=== PATIENT | male | born 1970 | race Caucasian/White ===

== ENCOUNTER 2016-12-25 14:50 | Emergency (ER) | payer BC ==
[2016-12-25] MEDS ORDERED: Alum Hydrox/Mag Hydrox/Simeth 30 ML, Lidocaine 2% 15 ML PO ONE ×2 (15:54)
[2016-12-25] MEDS: Lactated Ringers 1,000 ML IV SCH ×3 (16:03→18:08)
[2016-12-25 16:16] LABS: CHLORIDE,CL 100 mEq/L (98-106); SODIUM,NA 139 mEq/L (136-145)
[2016-12-25] MEDS ORDERED: Morphine 4 MG/ML Syringe IVPUSH PRN (16:39)
--- NOTE | 2016-12-25 16:44 | EDM.PDOC ---
ED HPI GENERAL MEDICAL PROBLEM - General Chief Complaint: General Stated Complaint: "burning stomach," intermittent vomting Time Seen by Provider: 12/25/16 16:22 Source of Information: Reports: Patient History Limitations: Reports: No limitations - History of Present Illness INITIAL COMMENTS - FREE TEXT/NARRATIVE: Shen is a 46 yo male who presents to the ER with complaints of stomach pain. States Friday night he woke up in the middle of the night with the urge to vomit. Admits he was able to go back to sleep afterwards and felt fine. States he thought it was from his supper which he had fajitas. Friday he felt well and worked without complication. States he didn't eat a lot while working and was fine until 12:30-1 in the morning when he had the urge to vomit again. States he started to get an uncomfortable pressure in the abdomen which would come and go. States he has been having bowel movement with last night having a little bit of diarrhea X 4 yesterday. States he currently doesn't have his appendix or gallbladder. He states d/t not feeling well he hasn't been able to take any of his blood pressure medications since yesterday morning. Onset Date: 12/23/16 Onset Time: 01:00 Duration: Getting worse Location: Reports: abdomen Associated Symptoms: Reports: loss of appetite, nausea/vomiting. Denies: confusion, chest pain, cough, cough w sputum, diaphoresis, fever/chills, headaches, shortness of breath, weakness - Related Data Allergies Allergy/AdvReac Type Severity Reaction Status Date / Time No Known Allergies Allergy Verified 12/25/16 14:57 Home Meds: Home Meds Aspirin [Halfprin] 81 mg PO DAILY 12/25/16 [History] Lisinopril/Hydrochlorothiazide [Lisinopril-Hctz 20-25 mg Tab] 1 tab PO DAILY [History] Phentermine HCl 15 mg PO DAILY 12/25/16 [History] Topiramate 50 mg PO BID 12/25/16 [History] Past Medical History Cardiovascular History: Reports: Hypertension - Past Surgical History HEENT Surgical History: Reports: Adenoidectomy, Tonsillectomy GI Surgical History: Reports: Appendectomy, Cholecystectomy, Hernia, abdominal Social & Family History - Tobacco Use Smoking Status *Q: Never Smoker ED ROS GENERAL - Review of Systems Review Of Systems: See Below Constitutional: Reports: decreased appetite. Denies: fever, chills, weakness, fatigue HEENT: Reports: No symptoms Respiratory: Reports: No Symptoms Cardiovascular: Reports: No symptoms GI/Abdominal: Reports: Abdominal pain, Diarrhea, Decreased appetite, Nausea, Vomiting. Denies: Black stool, Bloody stool, Constipation, Difficulty swallowing, Distension, Mucous in stool : Reports: no symptoms Musculoskeletal: Reports: no symptoms Skin: Reports: no symptoms ED EXAM, GENERAL - Physical Exam Exam: See Below Exam Limited By: No limitations General Appearance: alert, no apparent distress Ears: normal external exam, normal canal, hearing grossly normal, normal TMs Nose: normal inspection, no blood Throat/Mouth: Normal inspection, Normal teeth, Normal oropharynx, No airway compromise Head: atraumatic, normocephalic Neck: normal inspection, supple, non-tender Respiratory/Chest: no respiratory distress, lungs clear, normal breath sounds, no accessory muscle use Cardiovascular: normal peripheral pulses, no edema, no murmur, tachycardia GI/Abdominal: normal bowel sounds, soft, no mass, tender (midepigastrc). No: hepatomegaly, splenomegaly Extremities: normal inspection, normal range of motion Neurological: alert, oriented, no motor/sensory deficits Psychiatric: normal affect, normal mood Skin Exam: Warm, Dry, Intact, Normal color Course - Vital Signs Last Recorded V/S: Last Vital Signs Temp 98.1 F 12/25/16 14:52 Pulse 112 H 12/25/16 16:55 Resp 18 12/25/16 14:52 BP 163/108 H 12/25/16 16:55 Pulse Ox 99 12/25/16 14:52 - Orders/Labs/Meds Orders: Active Orders 24 hr Category Date Time Status Abdomen Pelvis w Cont [CT] Stat Exams 12/25/16 16:36 Taken H PYLORI STOOL ANTIGEN [MREF] Stat Lab 12/25/16 20:29 Uncollected Lactated Ringers [Ringers, Lactated] 1,000 ml Med 12/25/16 16:00 Active IV ASDIRECTED Metoclopramide [Reglan] Med 12/25/16 20:31 Ordered 10 mg PO BID PRN Morphine Med 12/25/16 16:39 Active 4 mg IVPUSH Q2H PRN Pantoprazole [Protonix IV] Med 12/25/16 16:45 Active 40 mg IVPUSH Q24H Medication Orders Lactated Ringer's (Ringers, Lactated) 1,000 mls @ 999 mls/hr IV ASDIRECTED [facility] Last Admin: 12/25/16 18:08 Dose: 999 mls/hr Infusion: 12/25/16 18:08 Dose: 999 mls/hr Admin: 12/25/16 17:07 Dose: 999 mls/hr Infusion: 12/25/16 17:04 Dose: 999 mls/hr Admin: 12/25/16 16:03 Dose: 999 mls/hr Metoclopramide HCl (Reglan) 10 mg PO BID PRN PRN Reason: Nausea Stop: 12/27/16 08:01 Last Admin: 12/25/16 20:40 Dose: 40 mg Morphine Sulfate (Morphine) 4 mg IVPUSH Q2H PRN PRN Reason: Abdominal Pain Last Admin: 12/25/16 16:52 Dose: 4 mg Pantoprazole Sodium (Protonix Iv) 40 mg IVPUSH Q24H [facility] Last Admin: 12/25/16 16:46 Dose: 40 mg Labs: Laboratory Tests 12/25/16 12/25/16 12/25/16 Range/Units 15:55 15:55 16:36 WBC 16.0 H (5.0-10.0) 10^3/uL RBC 5.60 (4.50-6.00) 10^6/uL Hgb 16.4 (14.0-18.0) g/dL Hct 48.0 (40.0-54.0) % MCV 85.7 (82.0-94.0) fL MCH 29.3 (27.0-32.0) pg MCHC 34.2 (33.0-38.0) g/dL RDW Coeff of [place] 13.9 (11.0-15.0) % Plt Count 328 (150-400) 10^3/uL Add Manual Diff Yes Neutrophils % (Manual) 86 H (35-85) % Band Neutrophils % 9 H (0-5) % Lymphocytes % (Manual) 4 L (21-55) % Monocytes % (Manual) 1 L (2-12) % Absolute Neutrophils 15.20 H (1.80-7.00) 10^3/uL Lymphocytes # (Manual) 0.64 L (1.00-4.80) 10^3/uL Monocytes # (Manual) 0.16 (0.00-0.80) 10^3/uL Sodium 139 (136-145) mEq/L Potassium 3.9 (3.5-5.0) mEq/L Chloride 100 (98-106) mEq/L Carbon Dioxide 28 (21-32) mmol/L BUN 23 H (7-18) mg/dL Creatinine 1.1 (0.7-1.3) mg/dL Est Cr Clr Drug Dosing 87.47 mL/min Estimated GFR (MDRD) > 60 (>=60) mL/min Glucose 212 H (75-99) mg/dL Calcium 9.6 (8.4-10.1) mg/dL Total Bilirubin 0.8 (0.0-1.0) mg/dL AST 16 (15-37) U/L ALT 52 (12-78) U/L Alkaline Phosphatase 94 (46-116) U/L Creatine Kinase (35-232) U/L Troponin I (0.00-0.06) ng/mL C-Reactive Protein 2.1 H (0.2-0.8) mg/dL Total Protein 7.6 (6.4-8.2) g/dL Albumin 3.5 (3.4-5.0) g/dL Amylase 53 (25-115) U/L // Range/Units 16:49 WBC (5.0-10.0) 10^3/uL RBC (4.50-6.00) 10^6/uL Hgb (14.0-18.0) g/dL Hct (40.0-54.0) % MCV (82.0-94.0) fL MCH (27.0-32.0) pg MCHC (33.0-38.0) g/dL RDW Coeff of [place] (11.0-15.0) % Plt Count (150-400) 10^3/uL Add Manual Diff Neutrophils % (Manual) (35-85) % Band Neutrophils % (0-5) % Lymphocytes % (Manual) (21-55) % Monocytes % (Manual) (2-12) % Absolute Neutrophils (1.80-7.00) 10^3/uL Lymphocytes # (Manual) (1.00-4.80) 10^3/uL Monocytes # (Manual) (0.00-0.80) 10^3/uL Sodium (136-145) mEq/L Potassium (3.5-5.0) mEq/L Chloride (98-106) mEq/L Carbon Dioxide (21-32) mmol/L BUN (7-18) mg/dL Creatinine (0.7-1.3) mg/dL Est Cr Clr Drug Dosing mL/min Estimated GFR (MDRD) (>=60) mL/min Glucose (75-99) mg/dL Calcium (8.4-10.1) mg/dL Total Bilirubin (0.0-1.0) mg/dL AST (15-37) U/L ALT (12-78) U/L Alkaline Phosphatase (46-116) U/L Creatine Kinase 46 (35-232) U/L Troponin I < 0.017 (0.00-0.06) ng/mL C-Reactive Protein (0.2-0.8) mg/dL Total Protein (6.4-8.2) g/dL Albumin (3.4-5.0) g/dL Amylase (25-115) U/L Meds: Medications Generic Name Dose Route Start Last Admin Trade Name Freq PRN Reason Stop Dose Admin Lactated Ringer's 1,000 mls @ 999 mls/hr 12/25/16 16:00 12/25/16 18:08 Ringers, Lactated IV 999 mls/hr ASDIRECTED NOAH Administration Metoclopramide HCl 10 mg 12/25/16 20:31 12/25/16 20:40 Reglan PO 12/27/16 08:01 40 mg BID PRN Administration Nausea Morphine Sulfate 4 mg 12/25/16 16:39 12/25/16 16:52 Morphine IVPUSH 4 mg Q2H PRN Administration Abdominal Pain Pantoprazole Sodium 40 mg 12/25/16 16:45 12/25/16 16:46 Protonix Iv IVPUSH 40 mg Q24H NOAH Administration Discontinued Medications Generic Name Dose Route Start Last Admin Trade Name Freq PRN Reason Stop Dose Admin Al Hydroxide/Mg Hydroxide 30 0 ml 12/25/16 15:54 12/25/16 16:01 ml/ Lidocaine HCl 15 ml PO 03/22/17 15:55 45 ml ONETIME ONE Administration - Re-Assessments/Exams Free Text/Narrative Re-Assessment/Exam: Shen has not had any episodes of emesis since being in the ER. He has been doing well and currently has not had any discomfort. CT report read by Dr. German did not see any complete bowel obstructions. Stating there was two prominent loops without any sign of obstruction. Stomach was full of contrast and questioned whether this could be secondary to gastroparesis. No sign of outlet obstructions was seen. Duodenum was decompressed. Departure - Departure Time of Disposition: 20:47 Disposition: Home, Self-Care 01 Condition: good Clinical Impression: Abdominal discomfort, epigastric Nausea & vomiting Qualifiers: Vomiting type: unspecified Vomiting Intractability: unspecified Qualified Code( s): R11.2 - Nausea with vomiting, unspecified Forms: ED Department Discharge Additional Instructions: 1) Reglan 10mg twice a day as needed for nausea/vomiting/gastroparesis. 2) Pantaprozole 40mg daily. 3) Recommend obtaining stool sample for H.Pylori. 4) Discussed into detail if symptoms return or any concerns at all, recommend follow up. 5) Advise taking blood pressure medication as soon as you get home. - Problem List & Annotations (1) Abdominal discomfort, epigastric SNOMED Code(s): 480614766 Code(s): R10.13 - EPIGASTRIC PAIN Status: Acute Current Visit: Yes (2) Nausea & vomiting SNOMED Code(s): 47388792 Code(s): R11.2 - NAUSEA WITH VOMITING, UNSPECIFIED Status: Acute Current Visit: Yes Qualifiers: Vomiting type: unspecified Vomiting Intractability: unspecified Qualified Code(s): R11.2 - Nausea with vomiting, unspecified - Problem List Review Problem List Initiated/Reviewed/Updated: Yes - My Orders Last 24 Hours: My Active Orders 12/25/16 16:00 Lactated Ringers [Ringers, Lactated] 1,000 ml IV ASDIRECTED 12/25/16 16:36 Abdomen Pelvis w Cont [CT] Stat 12/25/16 16:39 Morphine 4 mg IVPUSH Q2H PRN 12/25/16 16:45 Pantoprazole [Protonix IV] 40 mg IVPUSH Q24H 12/25/16 20:29 H PYLORI STOOL ANTIGEN [MREF] Stat 12/25/16 20:31 Metoclopramide [Reglan] 10 mg PO BID PRN - Assessment/Plan Last 24 Hours: My Active Orders 12/25/16 16:00 Lactated Ringers [Ringers, Lactated] 1,000 ml IV ASDIRECTED 12/25/16 16:36 Abdomen Pelvis w Cont [CT] Stat 12/25/16 16:39 Morphine 4 mg IVPUSH Q2H PRN 12/25/16 16:45 Pantoprazole [Protonix IV] 40 mg IVPUSH Q24H 12/25/16 20:29 H PYLORI STOOL ANTIGEN [MREF] Stat 12/25/16 20:31 Metoclopramide [Reglan] 10 mg PO BID PRN Plan: Discussed findings into detail with Shen. Will discharge home at this time with Reglan and Protonix. Advise follow up in 1 week, sooner if any concerns.
[2016-12-25] MEDS ORDERED: Pantoprazole 40 MG Vial IVPUSH SCH (16:45)
[2016-12-25] MEDS ORDERED: Metoclopramide 10 MG Tab PO PRN (20:31)
[2016-12-25 20:52] VITALS: BP 159/98
== END 2016-12-25 21:00 | disposition home or self-care (01) ==
LOC: CC.ED 14:50
DX: R10.13 Epigastric pain (principal); R11.2 Nausea with vomiting, unspecified; I10 Essential (primary) hypertension
CPT/HCPCS: 36415; 74177; 80053; 82150; 82550; 84484; 85025; 86140; 93005; 96361; 96374; 96375; 99284; A9270; C9113; J2270; J7120; Q9967

== ENCOUNTER 2021-07-17 15:53 | Observation (INO) | payer OTHER ==
--- NOTE | 2021-07-17 17:21 | EDM.PDOC ---
ED HPI GENERAL MEDICAL PROBLEM - General Chief Complaint: General Stated Complaint: TRAUMA - HIT IN HEAD Time Seen by Provider: 07/17/21 16:00 Source of Information: Reports: Patient, EMS History Limitations: Reports: No Limitations - History of Present Illness INITIAL COMMENTS - FREE TEXT/NARRATIVE: Shen is a 51 year old male who presents to ER after getting hit by a metal fe nce. 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 Was thrown back and "knocked unconscious" for a short time. The two men that were present with him, put him in their vehicle and headed to [facility] to the meet the ambulance. Had 2 episodes of vomiting enroute to [facility]. On arrival to the ambulance, patient was responsive, answering questions. Did note 2 small lacerations/abrasions to forehead and nose. Did appy bandages. Had extensive blood on his face but were not able to locate any other areas of bleeding. patient does admit to head and neck discomfort. No chest pain or shortness of breath. No pelvic pain. GCS at present 15. Onset: Today, Sudden Duration: Minutes:, Improving Location: Reports: Head, Neck Quality: Reports: Ache Severity: Mild Improves with: Reports: Rest Worsens with: Reports: Movement Context: Reports: Trauma Associated Symptoms: Reports: Headaches, Nausea/Vomiting. Denies: Confusion, Chest Pain, Cough, Fever/Chills, Loss of Appetite, Shortness of Breath Treatments DIRECTOR MACHINE: Reports: Dressing(s), See EMS Report, Spinal Immobilization Upper Forehead Pain Score (Numeric/FACES): 3 - Related Data Allergies Allergy/AdvReac Type Severity Reaction Status Date / Time No Known Allergies Allergy Verified 07/17/21 16:38 Home Meds: Home Meds Topiramate 100 mg PO DAILY 12/25/16 [History] lisinopriL [Lisinopril] 1 tab PO DAILY 07/17/21 [History] Past Medical History Cardiovascular History: Reports: Hypertension - Past Surgical History HEENT Surgical History: Reports: Adenoidectomy, Tonsillectomy GI Surgical History: Reports: Appendectomy, Cholecystectomy, Hernia, Abdominal Social & Family History - Tobacco Use Tobacco Use Status *Q: Never Tobacco User - Caffeine Use Caffeine Use: Reports: Soda - Recreational Drug Use Recreational Drug Use: No ED ROS GENERAL - Review of Systems Review Of Systems: See Below Constitutional: Denies: Fever, Chills, Malaise, Weakness, Fatigue, Decreased Appetite HEENT: Reports: Nosebleed. Denies: Ear Discharge, Ear Pain, Rhinitis, Sinus Problem, Throat Pain, Vertigo Respiratory: Denies: Shortness of Breath, Cough Cardiovascular: Reports: Lightheadedness. Denies: Chest Pain Endocrine: Denies: Fatigue GI/Abdominal: Reports: Nausea, Vomiting (admits felt nauseated shortly after event but denies at present. ). Denies: Abdominal Pain, Constipation, Diarrhea : Reports: No Symptoms Musculoskeletal: Reports: Neck Pain Skin: Reports: Bruising, Wound Neurological: Reports: Dizziness. Denies: Confusion, Weakness Psychiatric: Reports: No Symptoms ED EXAM, GENERAL - Physical Exam Exam: See Below Free Text/Narrative:: Shen is a 51 year old male who presents per EMS after being struck in the face with a gate. Brief loss of consciousness. Witnessed. No injury with fall. GCS 15 Alert, oriented. Converses easily, patent airway Lungs sounds clear. Regular S1S2 Abdomen soft, nontender No pelvic pain with palpation. Back exposed, no bruising or abrasions. Exam Limited By: No Limitations General Appearance: Alert, WD/WN, No Apparent Distress Eye Exam: Bilateral Eye: EOMI, PERRL Ears: Normal External Exam, Normal TMs Nose: Normal Inspection, Other (blood noted in left nare) Throat/Mouth: Normal Inspection, Normal Oropharynx Head: Normocephalic Neck: Normal Inspection, Supple, Other (c-collar intact, no tenderness with palpation) Respiratory/Chest: No Respiratory Distress, Lungs Clear, Normal Breath Sounds Cardiovascular: Regular Rate, Rhythm GI/Abdominal: Normal Bowel Sounds, Soft, Non-Tender Extremities: Normal Inspection, No Pedal Edema Neurological: Alert, Oriented Skin Exam: Warm, Dry, Wound/Incision (superficial abrasion to bridge of nose. 0.5 cm well approximated laceration to left upper forehead. Steri strip applied) Course - Vital Signs Last Recorded V/S: Last Vital Signs Temp 98.3 F 07/17/21 16:57 Pulse 85 07/17/21 17:12 Resp 15 07/17/21 17:12 BP 116/80 07/17/21 17:12 Pulse Ox 99 07/17/21 17:12 - Orders/Labs/Meds Orders: Active Orders 24 hr Category Date Time Status Cervical Spine wo Cont [CT] Routine Exams 07/17/21 Taken Head wo Cont [CT] Stat Exams 07/17/21 15:57 Taken Max Facial Sinus wo Cont [CT] Routine Exams 07/17/21 Ordered - Re-Assessments/Exams Free Text/Narrative Re-Assessment/Exam: 07/17/21 GCS [address] Up to CT for head and neck CT. No labs drawn due to mechanism of injury. No chest xray or pelvis due to mechanism only involving the face and no other trauma noted. Lung sounds clear, oxygen sats within normal limits. No pain with bearing weight 1700-GCS remains 15. Discomfort from C-Collar. 1705-Call from [facility] received. No intracranial or cervical concerns. Recommend facial CT due to areas of fracture around the left orbit. Does now have ecchymosis around the left eye starting as well. Still denies double or blurred vision. C-Collar removed. Does feel improves neck discomfort. 1715-Taken up for dedicated facial CT 07/17/21 18:[address] results showing significant orbital and facial fractures. Contacted and spoke with facial surgeon from [facility]. Does not feel there is any surgical concerns, will follow up with him in clinic. [facility] will call them tomorrow. and patient aware. Departure - Departure Time of Disposition: 18:18 Disposition: Refer to Observation Condition: Fair Clinical Impression: Closed head injury, Orbital floor fracture - Discharge Information *PRESCRIPTION DRUG MONITORING PROGRAM REVIEWED*: No *COPY OF PRESCRIPTION DRUG MONITORING REPORT IN PATIENT OMI: No Forms: ED Department Discharge Sepsis Event Note (ED) - Evaluation Sepsis Screening Result: No Definite Risk - Focused Exam Vital Signs: Vital Signs Temp Pulse Resp BP Pulse Ox 07/17/21 17:12 85 15 116/80 99 07/17/21 16:57 98.3 F 86 16 133/84 98 07/17/21 16:42 88 17 130/83 97 07/17/21 16:27 98.4 F 84 17 138/89 95 07/17/21 15:59 98.4 F 85 18 141/102 H 96 - Problem List & Annotations (1) Closed head injury SNOMED Code(s): 325569361102 Code(s): S09.90XA - UNSPECIFIED INJURY OF HEAD, INITIAL ENCOUNTER Status: Acute Priority: High Current Visit: Yes Qualifiers: Encounter type: initial encounter Qualified Code(s): S09.90XA - Unspecified injury of head, initial encounter (2) Orbital floor fracture SNOMED Code(s): 528794087 Code(s): S02.30XA - FRACTURE OF ORBITAL FLOOR, UNSPECIFIED SIDE, INIT Status: Acute Priority: High Current Visit: Yes Qualifiers: Fracture type: closed Laterality: left - Problem List Review Problem List Initiated/Reviewed/Updated: Yes - My Orders Last 24 Hours: My Active Orders 07/17/21 Cervical Spine wo Cont [CT] Routine Max Facial Sinus wo Cont [CT] Routine 07/17/21 15:57 Head wo Cont [CT] Stat - Assessment/Plan Admission H&P: Please use this note as an admission H&P Last 24 Hours: My Active Orders 07/17/21 Cervical Spine wo Cont [CT] Routine Max Facial Sinus wo Cont [CT] Routine 07/17/21 15:57 Head wo Cont [CT] Stat Assessment:: closed Head Injury Orbital floor fracture Plan: Admit observation. Will continue to monitor neuro status. Monitor dizziness.
[2021-07-17] MEDS ORDERED: Ondansetron 4 MG Tab.DIS PO PRN (18:59)
[2021-07-17] MEDS ORDERED: Sodium Chloride 0.9% 10 ML Syringe FLUSH PRN (18:59)
[2021-07-17] MEDS ORDERED: Ondansetron 4 MG/2 ML SDV IV PRN (18:59)
[2021-07-17] MEDS: Acetaminophen 325 MG Tab PO PRN (20:00)
[2021-07-18] MEDS: Acetaminophen 325 MG Tab PO PRN (07:29)
[2021-07-18] MEDS ORDERED: Non-Formulary Medication 1 Each (Lisinopril [Lisinopril] 40 MG Tablet) PO SCH (08:00)
[2021-07-18] MEDS ORDERED: TOPIRAMATE 50 MG PO SCH (08:00)
[2021-07-18] MEDS ORDERED: LISINOPRIL 40 MG PO SCH (08:15)
[2021-07-18 13:08] VITALS: BP 129/77; PULSE 72
--- NOTE | 2021-07-18 20:52 | PCM.DCSUM1 ---
Discharge Summary - Hospital Course Free Text/Narrative:: Shen is a 51 year old male who presented to ER after getting hit by a metal fence. 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 Was thrown back and "knocked unconscious" for a short time. The two men that were present with him, put him in their vehicle and headed to town to the meet the ambulance. Had 2 episodes of vomiting enroute to [facility]. On arrival to the ambulance, patient was responsive, answering questions. Did note 2 small lacerations/abrasions to forehead and nose. Did apply bandages. Had extensive blood on his face but were not able to locate any other areas of bleeding. Patient had head and neck discomfort. No chest pain or shortness of breath. No pelvic pain. GCS at present 15. CT scans done of head, neck and face. No intracranial abnormalities . No cervical injury. Multiple left facial fractures. Did discuss with facial surgeon at [place], did not feel any were of a surgical nature. Admitted for neuro checks as patient lightheaded when up. Is having little pain in his face, mostly neck discomfort. Diagnosis: Stroke: No Modified [place] Scale: No Symptoms at All Modified [place] Scale Score: 0 - Discharge Data Discharge Date: 07/18/21 Discharge Disposition: Home, Self-Care 01 Condition: Fair - Referral to Home Health Primary Care Physician: Jaison Mcfarlane MD - Discharge Diagnosis/Problem(s) (1) Closed head injury SNOMED Code(s): 884276008484 ICD Code: S09.90XA - UNSPECIFIED INJURY OF HEAD, INITIAL ENCOUNTER Status: Acute Priority: High Qualifiers: Encounter type: initial encounter Qualified Code(s): S09.90XA - Unspecified injury of head, initial encounter (2) Orbital floor fracture SNOMED Code(s): 286630818 ICD Code: S02.30XA - FRACTURE OF ORBITAL FLOOR, UNSPECIFIED SIDE, INIT Status: Acute Priority: High Qualifiers: Encounter type: initial encounter Fracture type: closed Laterality: left Qualified Code(s): S02.32XA - Fracture of orbital floor, left side, initial encounter for closed fracture - Patient Summary/Data Complications: none Hospital Course: Patient is doing well this am. Was a bit unsteady at first when getting out of bed but that has improved. Neuro checks have remained normal. Does have neck stiffness yet but feels the heating pad does help that. Has only taken tylenol for pain. Ambulating around the nurses station now, had shower this am and tolerated all well. Has significant bruising to his left eye but denies vision changes or pain. Will see facial surgeon at [facility] next week or sooner as needed. Discharge home. Tylenol for pain. Heating pad as needed. Avoid further trauma. - Patient Instructions Diet: Usual Diet as Tolerated Activity: As Tolerated Other/Special Instructions: See facial surgeon as per their recommendations next week - Discharge Plan *PRESCRIPTION DRUG MONITORING PROGRAM REVIEWED*: No *COPY OF PRESCRIPTION DRUG MONITORING REPORT IN PATIENT OMI: No Home Medications: Home Meds Topiramate 100 mg PO DAILY 12/25/16 [History] lisinopriL [Lisinopril] 1 tab PO DAILY 07/17/21 [History] Patient Handouts: Head Injury, Adult, Orbital Floor Fracture, Concussion, Adult Forms: ED Department Discharge Referrals: Jaison Mcfarlane MD [Primary Care Provider] - (Follow up with Jaison Mcfarlane MD as needed for persisting concerns.) - Discharge Summary/Plan Comment DC Time >30 min.: No Total # of Minutes for Discharge Time: 20 - General Info Date of Service: 07/18/21 Admission Dx/Problem (Free Text: closed head injury blowout orbital fracture Functional Status: Reports: Pain Controlled, Tolerating Diet, Ambulating - Review of Systems General: Denies: Fever, Weakness, Fatigue, Malaise HEENT: Reports: Other (mild eye discomfort). Denies: Ear Pain, Headaches, Sinus Congestion Pulmonary: Denies: Shortness of Breath, Cough Cardiovascular: Denies: Chest Pain, Edema, Lightheadedness Gastrointestinal: Denies: Abdominal Pain, Nausea, Vomiting Genitourinary: Reports: No Symptoms Musculoskeletal: Reports: No Symptoms Skin: Reports: Bruising Neurological: Denies: Confusion, Dizziness, Headache, Weakness Psychiatric: Denies: Confusion - Patient Data Vitals - Most Recent: Last Vital Signs Temp 98.6 F 07/18/21 12:00 Pulse 72 07/18/21 12:00 Resp 20 07/18/21 12:00 BP 129/77 07/18/21 12:00 Pulse Ox 96 07/18/21 12:00 Weight - Most Recent: 256 lb 9.6 oz Med Orders - Current: Current Medications Discontinued Medications Acetaminophen (Acetaminophen 325 Mg Tab) 650 mg PO Q4H PRN PRN Reason: Pain Last Admin: 07/18/21 07:29 Dose: 650 mg Documented by: Non-Formulary Medication (Lisinopril [Lisinopril]) 1 tab PO DAILY [facility] Last Admin: 07/18/21 08:22 Dose: Not Given Documented by: Non-Formulary Medication (Topiramate [Topiramate]) 100 mg PO DAILY [facility] Lisinopril 40 Mg Tab (Ptom) 0 mg PO DAILY [facility] Last Admin: 07/18/21 08:21 Dose: 40 mg Documented by: Ondansetron HCl (Ondansetron 4 Mg Tab.Dis) 4 mg PO Q4H PRN PRN Reason: nausea, able to take PO Ondansetron HCl (Ondansetron 4 Mg/2 Ml Sdv) 4 mg IV Q4H PRN PRN Reason: Nausea/Vomiting Last Admin: 07/17/21 19:25 Dose: 4 mg Documented by: Sodium Chloride (Sodium Chloride 0.9% 10 Ml Syringe) 10 ml FLUSH ASDIRECTED PRN PRN Reason: Keep Vein Open - Exam General: Reports: Alert, Oriented, Cooperative HEENT: Reports: Mucous Membr. Moist/[place] Neck: Reports: Supple Lungs: Reports: Clear to Auscultation, Normal Respiratory Effort Cardiovascular: Reports: Regular Rate, Regular Rhythm GI/Abdominal Exam: Normal Bowel Sounds, Soft, Non-Tender Back Exam: Reports: Normal Inspection, Full Range of Motion Extremities: Normal Inspection, No Pedal Edema Skin: Reports: Ecchymosis (left eye) Wound/Incisions: Reports: Other (2 small lacerations. One to forehead, steri strips intact. No active bleeding. Superficial laceration to bridge of nose, dry.) Neurological: Reports: No New Focal Deficit
== END 2021-07-18 13:00 | disposition home or self-care (01) ==
LOC: CC.ED 15:53 → SUPCPDRO 15:53 → UNDOADMOB 18:17 → CC.MS 18:17
PROVIDERS: ADMIT Physician Assistant Medical; ATTEND Family Medicine
DX: S02.31XA Fracture of orbital floor, right side, initial encounter for closed fracture (principal); S09.90XA Unspecified injury of head, initial encounter; W55.22XA Struck by cow, initial encounter
CPT/HCPCS: 70450; 70486; 72125; 96374; 99285-25; A9270-GY; G0378; J2405